=== PATIENT | female | born 1965 | race Hispanic/Latino ===

== ENCOUNTER 2025-04-17 07:58 | Outpatient (CLI) | payer BC ==
[2025-04-17 08:27] LABS: Hematocrit 43.4 % (36.0-47.0); Hemoglobin 13.6 g/dL (12.0-16.0); Mean Corpuscular Hemoglobin 27.9 pg (27.0-31.0); Mean Corpuscular Volume 88.9 fl (78.0-98.0); Platelet Count 374 10x3/uL (130-400); Red Blood Cell (RBC) Count 4.88 mill/uL (4.20-5.40); White Blood Cell (WBC) Count 4.5 10x3/uL (4.8-10.8)
[2025-04-17 08:40] LABS: Anion Gap 12 mmol/L (10-20); BUN (Urea Nitrogen) 21 mg/dL (9.8-20.1); Calc. Creatinine Clearance 0 mL/min (70-130); Calcium 8.6 mg/dL (7.8-10.44); Carbon Dioxide 25 mmol/L (22-29); Cardiac Risk 4.4 (Less than 4.5); Chloride 110 mmol/L (98-107); Cholesterol 217 mg/dl (< 200 Desired); Glucose 89 mg/dL (70-105); HDL Cholesterol 49 mg/dL (>60 Neg Risk); LDL Cholesterol, Calculated 142 mg/dL; Potassium 4.0 mmol/L (3.5-5.1); Sodium 143 mmol/L (136-145); Triglycerides 130 mg/dL (Less than 150)
[2025-04-17 17:56] LABS: Free T4 (Free Thyroxine) 1.01 ng/dL (0.70-1.48)
== END 2025-04-17 07:59 | disposition home or self-care (01) ==
LOC: MADLAB 07:58
PROVIDERS: ATTEND Internal Medicine Interventional Cardiology
DX: A42.1 Abdominal actinomycosis (principal)
CPT/HCPCS: 36415; 80048; 80061; 83036; 84439; 84443; 84481; 85027